=== PATIENT | male | born 1975 | race Caucasian/White ===

== ENCOUNTER 2022-07-21 11:17 | Emergency (ER) | payer BC, SELFPAY ==
[2022-07-21 11:25] VITALS: BP 145/96; PULSE 79; RESP 18; TEMP 37.1; O2SAT 97; BMI 17.8
--- NOTE | 2022-07-21 11:41 | CRLHL7_ITS ---
For Patients: As a result of the Cures Act, medical imaging exams and procedure reports are released immediately into your electronic medical record. You may view this report before your referring provider. If you have questions, please contact your health care provider. Indication: PAIN, EFFUSION Technique: Right knee 3 views Comparison: None Findings: Bones: Alignment is normal. No fractures or suspicious bone lesions. Incidental bone island in the distal femur. Joint spaces: Joint spaces are well maintained. No degenerative changes. No sign of joint effusion. Soft tissues: Unremarkable. Impression: No fracture. No effusion. Dictated by Shaq Anne MD @ 07/21/2022 12:06:44 PM (Electronically Signed)
--- NOTE | 2022-07-21 11:42 | ED_ITS ---
HPI - Extremity Injury (Lower) General Chief Complaint: Extremity Pain/Injury, Lower Stated Complaint: Right knee pain Time Seen by Provider: 07/21/22 11:17 History of Present Illness HPI Narrative: This 46-year-old male comes in with pain in his right knee that began yesterday. Yesterday he was chopping wood and doing lots of bending. He did not have any specific injury event but did feel that his knee buckled at 1 point. He does not have a prior injury to either knee. He has had some back pain in the past but has none at this time. He states that he had swelling in his knee last night and his ankle also swelled up. He did use some compression and today that swelling has dissipated. He has distinct pain when ambulating on his right leg but was able to ambulate in here without assistance. He reports pain is localized on the lateral aspect of the right knee joint. Related Data Previous Rx's Medication Instructions Recorded ketorolac 10 mg tablet 10 mg PO Q8H 5 days #15 tabs 07/21/22 Allergies Allergy/AdvReac Type Severity Reaction Status Date / Time acetaminophen [From Tylenol] AdvReac Mild Verified 07/21/22 11:30 Review of Systems Status of ROS: Reports: 10 or more systems reviewed and unremarkable except as noted in History and below Narrative: Constitutional: No fevers, no weight gain or loss. Eyes: No discharge. No vision changes. HENT: No congestion, no sore throat, no ear pain. Cardiovascular: No chest pain, no palpitations. Respiratory: No shortness of breath, no wheezes, no cough. Gastrointestinal: No abdominal pain, no vomiting, no diarrhea. Genitourinary: No dysuria, no hematuria. Musculoskeletal: Right knee pain as described above. Skin: No rashes, no pruritis. Neurological: No dizziness, weakness, sensory change, speech change. Endo/Heme/Allergies: No bruising or bleeding. No polydipsia. Pysch: no suicidality, no anxiety, no insomnia. All other systems reviewed and are negative. [facility] Medical History (Updated 07/21/22 @ 12:29 by Toro Solorzano MD) No significant past medical history Surgical History (Updated 07/21/22 @ 11:31 by Martha Lee RN) No significant past surgical history Social History Smoking Status: Current every day smoker How often do you have a drink containing alcohol: 4 or more times a week AUDIT-C Alcohol total score: 4 Non-prescribed substance use: denies use Exam Narrative: Exam Narrative: Constitutional: Well-developed, well-nourished, no acute distress. HEENT: Normocephalic, atraumatic. Neck: Normal range of motion. Nontender. Supple. Heart: Intact distal pulses. Lungs: No chest discomfort. No wheezes, rhonchi, or rales. Abdomen: Nontender. Back: Normal range of motion. Extremities: Normal range of motion. Pain is localized on the lateral aspect of the right knee joint. There is no effusion. All ligaments are assessed and there is no sign of ligament instability. Range of motion is intact. Skin: Intact. No rash. Warm. No erythema or pallor. Neurologic: No altered sensation. No weakness. Alert and oriented. Straight leg raise is negative. Psychiatric: No suicidality. No anxiety or depression. No insomnia. Nursing notes and vitals signs are reviewed. Const: Vital Signs, click to edit/add: Vital Signs - 24 hr 07/21/22 11:25 Temperature 98.7 F Pulse Rate [Pulse Oximeter] 79 Respiratory Rate 18 Blood Pressure [Ri ght Upper Arm] 145/96 H Pulse Oximetry 97 Oxygen Delivery Me thod Room Air Course Vital Signs Vital signs: Initial Vital Signs Temperature 98.7 F 07/21/22 11:25 Temperature Source Temporal Artery Scan 07/21/22 11:25 Pulse Rate 79 07/21/22 11:25 Respiratory Rate 18 07/21/22 11:25 Blood Pressure 145/96 H 07/21/22 11:25 Blood Pressure Mean 112 07/21/22 11:25 Blood Pressure Position Supine 07/21/22 11:25 Pulse Oximetry 97 07/21/22 11:25 Oxygen Delivery Method 07/21/22 11:25 Vital Signs Temperature 98.7 F 07/21/22 11:25 Pulse Rate 79 07/21/22 11:25 Respiratory Rate 18 07/21/22 11:25 Blood Pressure 145/96 H 07/21/22 11:25 Pulse Oximetry 97 07/21/22 11:25 Oxygen Delivery Method 07/21/22 11:25 Temperature 98.7 F 07/21/22 11:25 Pulse Rate 79 07/21/22 11:25 Respiratory Rate 18 07/21/22 11:25 Blood Pressure 145/96 H 07/21/22 11:25 Pulse Oximetry 97 07/21/22 11:25 Oxygen Delivery Method 07/21/22 11:25 MDM - Extremity Injury (Lower) MDM Narrative Medical decision making narrative: This patient comes in with pain in his right knee and states that he had an effusion last night that also causes ankle to swell. He use some compression and today has very minimal swelling. He continues to have some pain localized on the lateral aspect of his knee. He is able to ambulate. His exam is reassuring in that there is no ligament instability. I tested ACL, PCL, MCL, and LCL ligaments. All are intact and there was no discomfort when assessing these ligaments. He currently does not have any sign of effusion. X-ray images also returned with no acute findings. Most likely this patient has an overuse injury and would anticipate recovery over time. He does ambulate with a significant limp. He did receive a set of crutches and a prescription for Toradol. I advised him to follow-up with orthopedic clinic if not improving or if worsening symptoms happen. Imaging Data XR R knee: Radiologist's impression: No fracture. No effusion. Discharge Plan Discharge Clinical Impression: Acute knee pain Patient Disposition: Home, Self-Care Condition: Stable Additional Instructions: Use crutches as needed. Increase activity as tolerated. Follow up with MD or return if worsening. Prescriptions: New ketorolac 10 mg tablet 10 mg PO Q8H 5 Days Qty: 15 0RF Follow Up/Referrals: Matthew Howard MD [Referring] - Stand Alone Forms: [employer] Info Instructions
--- OUTSIDE RECORDS SUMMARY | 2022-07-21 11:51 | XMS_ITS | Encounter Summary ---
:1975 Author Organization Veteran Address [address] [place] [id number] Care Team Providers Name Role Phone No Ref-Primary, Physician Primary Care Provider [phone] Encounter Details Date Type Department Care Team Description 04/19/2019 Travel Social History Tobacco Use Types Packs/Day Years Used Date Never Assessed Sex Assigned at Date Recorded Not on file documented as of this encounter Plan of Treatment Not on filedocumented as of this encounter Visit Diagnoses Not on filedocumented in this encounter Care Teams Kiln Firer Relationship Specialty Start Date End Date No Ref-Primary, Physician PCP - General 04/19/19 documented as of this encounter
--- OUTSIDE RECORDS SUMMARY | 2022-07-21 11:51 | XMS_ITS | Clinical Summary ---
:1975 Author Organization [place] Address [address] [place] [address]. [place] [address] Care Team Providers Name Role Phone No Ref-Primary, Physician Primary Care Provider [phone] Allergies No known active allergies Immunizations Name Administration Dates Next Due TDAP Vaccine (Adacel) 04/19/2019 (Deferred: - Reports had re cently.) Social History Tobacco Use Types Packs/Day Years Used Date Never Assessed Sex Assigned at Date Recorded Not on file Last Filed Vital Signs Vital Sign Reading Time Taken Comments Blood Pressure 142/92 04/19/2019 1:02 AM CDT Pulse 72 04/19/2019 1:00 AM CDT Temperature 36.6 ??C (97.8 ??F) 04/19/2019 1:00 AM CDT Respiratory Rate 16 04/19/2019 1:00 AM CDT Oxygen Saturation 98% 04/19/2019 1:02 AM CDT Inhaled Oxygen Concentration - - Weight 70.3 kg (155 lb) 04/19/2019 1:00 AM CDT Height - - Body Mass Index - - Plan of Treatment Not on file Insurance Payer Benefit Plan / Subscriber ID Effective Phone Address T ype Group Dates [facility] [id number] Effective for [phone] [address] HMO [place]ARE [place] all dates [address] [place] [address] BLUE PLUS BLUE PLUS [id number] 2019-Pres [phone] [address] HMO ADVANTAGE [place] ent [phone] [place] [address] Tenzin [facility]ner [facility] 1975 [phone] [address] [place] [address] Care Teams Server Systems Administrator Relationship Specialty Start Date End Date No Ref-Primary, Physician PCP - General 04/19/19
--- OUTSIDE RECORDS SUMMARY | 2022-07-21 11:51 | XMS_ITS | Encounter Summary ---
:1975 Author Organization [place] Address [address] [place] [address]. [place] [address] Care Team Providers Name Role Phone Emmanuel Maravilla MD Primary Care Provider [phone] Encounter Details Date Type Department Care Team Description 12/29/2002 Orders Only [facility] Emmanuel Dominguez FOOT 3VW REPT Clinic [place] Hum[place] MD (Primary Dx) [facility] [address] [place] [id number] [phone] Social History Tobacco Use Types Packs/Day Years Used Date Never Assessed Sex Assigned at Date Recorded Not on file documented as of this encounter Plan of Treatment Not on filedocumented as of this encounter Procedures Procedure Name Priority Date/Time Associated Diagnosis Comme nts X-RAY FOOT COMPLETE Routine 12/29/2002 FOOT 3VW REPT Resu lts for this >=3 VIEWS procedure are i n the results section . documented in this encounter Results X-RAY FOOT 3+ VW (12/29/2002) Anatomical Region Laterality Modality Other Impressions 12/29/2002 THREE VIEWS OF THE RIGHT FOOT HISTORY: Injury. FINDINGS: Comminuted fracture of the dis robert end of the proximal phalanx of the right great toe. Fracture fragments well aligned. Ordering Provider: ??SONIA RAPP Principal Result Clinical Psychology Teacher: ??KRAIG ORNELAS Delivery Department Supervisor: ??Elda Wu Electronically filed by Aden Suazo ( [facility]) ??12/31/2002 ??9:09 AM Emmanuel Maravilla MD GENERAL IMAGING documented in this encounter Visit Diagnoses Diagnosis FOOT 3VW REPT - Primary documented in this encounter Care Teams Lumber Tying Machine Operator Relationship Specialty Start Date End Date Emmanuel Maravilla MD PCP - General 12/07/01 04/18/19 [id number] [place] [id number] documented as of this encounter
--- OUTSIDE RECORDS SUMMARY | 2022-07-21 11:51 | XMS_ITS | Encounter Summary ---
:1975 Author Organization [place] Address [address] [place] [address]. [place] [address] Care Team Providers Name Role Phone Emmanuel Maravilla MD Primary Care Provider [phone] Encounter Details Date Type Department Care Team Description 08/20/2012 Office Visit [facility] Zenia Bolanos LP Adjustment disorder Services [facility] FILLER MIXER KNOB with mixed anxiety and [facility] depressed mood FILLER MIXER KNO[place], [place] (Primary Dx) [place] [id number] Social History Tobacco Use Types Packs/Day Years Used Date Never Assessed Sex Assigned at Date Recorded Not on file documented as of this encounter Progress Notes Zenia Bolanos LP - 08/20/2012 5:17 PM CDT Images from the original note were not included. Adult Intake Structured Interview CLIENT'S NAME: Tenzin Garner : 1975 ACCT. NUMBER: [id number] DATE OF SERVICE: 08/20/12 Identifying Information: Client is a 36 year old, , male. Client was referred for counseling by self. Client is currently underemployed. Client attended the session alone. Client's Statement of Presenting Concern: Client reports the reason for seeking therapy at this time as to assess mental health. Client statedthat his symptoms have resulted in the following functional impairments: health maintenance and financial. History of Presenting Concern: Client reports that these problem(s) began in the last few years DWI 3 years ago) and increased recently . Client has not attempted to resolve these concerns in the past. Client reports that other professional(s) are not involved in providing support / services. Social History: Client reported he grew up in [place], [place]. They were the second born of 3 children. This is an intact family and parents remain . Client reported that his childhood was happy. Client described his current relationships with family of origin as not as good as he would Like with sons, good with daughter. Client reported a history of 4 committed relationships and 1 marriage. Client has been for about 3 years. Client reported having 3 children. Client identified some stable and meaningful socialconnections. Client reported that he has been involved with the legal system: DWI. Client's highest education level was grade 10 . Client did identify the following learning problems: attention, concentration, hearing, reading, speech and writing. There are no ethnic, cultural or mu-ism factors that may be relevant for therapy. Client identified his preferred language to be Tristanian. Client reported he does not need the assistance of an medical sales specialist or other support involved in therapy. Modifications will not be used to assist communication in therapy. Client did not serve in the . Client reports family history is not on file. Mental Health History: Client reported no family history of mental health issues. Client has not received mental health services in the past. Hospitalizations: None. Client is not currently receiving any mental health services. Chemical Health History: Client reported no family history of chemical health issues. Client has [facility] . Client is not currently receiving any chemical dependency treatment. Client reported the following problems as a result of drinking and drug use: DUI, financial problems and legal issues. Client Reports: Client consumes 0 ALCOHOL. Client consumes TOBACCO 10 times a day. About 1/2 pack a day. Client denies using marijuana. Client consumes CAFFEINE 2 times a week. Client denies using street drugs. Client denies the non-medical use of prescription or over the counter drugs. CAGE: None of the patient's responses to the CAGE screening were Negative . Based on the negative Cage-Aid score and clinical interview there are not indications of drug or alcohol abuse. Discussed the general effects of drugs and alcohol on health and well-being. Significant Losses / Trauma / Abuse / Neglect Issues: Divorce, missing his kids, Kids were taken out of the state without his awareness, of friends/family members. Issues of possible neglect : none Medical Issues: Client has had a physical exam to rule out medical causes for current symptoms. Date of last physical exam was within the last year. The client does not have a Primary Care Provider and was encouraged to establish care with a PCP.. The client reports not having a psychiatrist. Client reports the following current medical concerns: asthma, chronic pain. The client reports the presence of chronic or episodic pain in the form of back , neck shoulder and foor. The pain level is severe and has a frequency of daily. Attends p.t. Twice a week. There are not significant nutritional concerns. Client reports current meds as: Gabapentin Is re-evaluating it. Flexerall 2 times a week. Medication Adherence: Client reports taking prescribed medications as prescribed. Client was provided recommendation to follow-up with prescribing physician. Mental Status Assessment: Appearance: Appropriate Eye Contact: Good Psychomotor Behavior: Normal Attitude: Cooperative Orientation: All Speech Rate / Production: Normal Volume: Normal Mood: Normal Affect: Appropriate Thought Content: Clear Thought Form: Coherent Logical Insight: Good Review of Symptoms: Depression: PHQ-9 score= 10 Disruption of mood, sleep ( is related to pain), energy, & concentration Anabella: No symptoms Psychosis: No symptoms Anxiety: Osmani 7 score = 1 Irritable, edgy, anxious Panic: PANIC: No symptoms Post Traumatic Stress Disorder: No symptoms Obsessive Compulsive Disorder: No symptoms Eating Disorder: No symptoms Oppositional Defiant Disorder: No symptoms ADD / ADHD: No symptoms Conduct Disorder: No symptoms Safety Issues and Plan for Safety and Risk Management: Client denies a history of suicidal ideation, suicide attempts, self-injurious behavior, homicidal ideation, homicidal behavior and other safety concerns Client denies current fears or concerns for personal safety. Client denies current or recent suicidal ideation or behaviors. Client denies current or recent homicidal ideation or behaviors. Client denies current or recent self injurious behavior or ideation. Client denies other safety concerns. Client reports there are no firearms in the house. A safety and risk management plan has not been developed at this time, however client was given the after-hours number should there be a change in any of these risk factors. Patient's Strengths and Limitations: Client identified the following strengths or resources that will help her succeed in counseling: commitment to health and well being, intelligence and sense of humor. Client identified the following supports: friends. Things that may interfere with the clients success in counseling include:financial hardship. Diagnostic Criteria: Adjustment Disorder with Mixed Anxiety and Depressed Mood: The predominant manifestation is a combination of depression and anxiety Functional Status: Client's symptoms have caused and are causing reduced functional status in the following areas: financial, unemployment DSM-IV Diagnoses: (Sustained by DSM-IV Criteria Listed Above) AXIS I: 309.28 AXIS II: none AXIS III: Chronic pain, taking Adrenagen for an adrenal AXIS IV: unemployed AXIS V: Current GAF estimated at: 55 Highest GAF past year estimated at: 68 Attendance Agreement: Client has signed Attendance Agreement: Yes Preliminary Treatment Plan: The client reports no currently identified mu-ism, ethnic or cultural issues relevant to therapy. Vest Presser services are not indicated. Modifications to assist communication are not indicated. The concerns identified by the client will be addressed in therapy. Initial Treatment will focus on: Adjusting to Depressed Mood - Anxiety - . As a preliminary treatment goal, client will experience a reduction in depressed mood, will develop more effective coping skills to manage depressive symptoms, will develop healthy cognitive patterns and beliefs and will increase ability to function adaptively and will experience a reduction in anxiety, will develop more effective coping skills to manage anxiety symptoms, will develop healthy cognitive patterns and beliefs and will increase ability to function adaptively. The focus of initial interventions will be to alleviate anxiety, increase coping skills, teach CBT skills, teach emotional regulation and teach relaxation strategies. Collaboration with PCP as needed. Referral to another professional/service is not indicated at this time. A Release of Information is not needed at this time. Report to child / adult protection services was NA. Client will have access to their [facility] medical record. Zenia Bolanos LP, documented in this encounter Plan of Treatment Not on filedocumented as of this encounter Visit Diagnoses Diagnosis Adjustment disorder with mixed anxiety a nd depressed mood - Primary documented in this encounter Care Teams Quality Assurance Coordinator Relationship Specialty Start Date End Date Emmanuel Maravilla MD PCP - General 12/07/01 04/18/19 [address] [place] [id number] documented as of this encounter
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
--- OUTSIDE RECORDS SUMMARY | 2022-07-21 11:51 | XMS_ITS | Encounter Summary ---
:1975 Author Organization [place] Address [address] [place] [address] Care Team Providers Name Role Phone Emmanuel Maravilla MD Primary Care Provider [phone] Encounter Details Date Type Department Care Team Description 12/03/2012 [facility] Zenia Bolanos LP Documentation Services [id number] [place] [address] [id number] Social History Tobacco Use Types Packs/Day Years Used Date Never Assessed Sex Assigned at Date Recorded Not on file documented as of this encounter Progress Notes Zenia Bolanos LP - 12/03/2012 3:33 PM CST Images from the original note were not included. Discharge Summary Single Session Client Name: Tenzin Garner Date: 1975 Intake / Discharge Date: 08-20-1212-03-12 DSM-IV Diagnoses: (Sustained by DSM-IV Criteria Listed Above) AXIS I: 309.28 AXIS II: none AXIS III: Chronic pain, taking Adrenagen for an adrenal AXIS IV: unemployed AXIS V: Current GAF estimated at: 55 Highest GAF past year estimated at: 68 Presenting Concern: Financial And family stressors Reason for Discharge: Client did not return Disposition at Time of Last Encounter: Comments: unemployed Risk Management: Client denies a history of suicidal ideation, suicide attempts, self-injurious behavior, homicidal ideation, homicidal behavior and and other safety concerns A safety and risk management plan has not been developed at this time, however client was given the after-hours number should there be a change in any of these risk factors. Referred To: none Zenia Bolanos LP 12/03/2012 VACUUM TESTER documented in this encounter Plan of Treatment Not on filedocumented as of this encounter Visit Diagnoses Not on filedocumented in this encounter Care Teams Inspector Filter Tip Relationship Specialty Start Date End Date Emmanuel Maravilla MD PCP - General 12/07/01 04/18/19 [address] [place] [address] documented as of this encounter
--- OUTSIDE RECORDS SUMMARY | 2022-07-21 11:52 | XMS_ITS | Clinical Summary ---
:1975 External Reference #:CL #[id number] Author Organization [facility] [place] [address] Care Team Providers Name Role Phone [facility] Primary Care Provider Unavailable Allergies Active Allergy Reactions Severity Noted Date Comments Acetaminophen Stomach Upset 12/04/2014 Medications Medication Sig Dispensed Refills Start Date End Date Status ranitidine (ZANTAC) 150 One pill 1-2 180 tablet 2 10/23/2016 Active mg tabletIndications: times a day as Epigastric pain needed for stomach symptoms. cyclobenzaprine One po q hs 30 tablet 3 04/30/2017 A ctive (FLEXERIL) 10 mg tabletIndications: Worsening headaches omeprazole (PRILOSEC) 20 Take 1 capsule 30 capsule 4 7 Active mg Delayed-Release by mouth once capsuleIndications: daily before a Chronic cough meal. albuterol HFA 90 Inhale 2 Puffs 1 Inhaler 0 04/30/2017 Active mcg/actuation by mouth 4 inhalerIndications: times daily if Chronic cough needed. Active Problems Problem Noted Date Presbyopia 06/26/2019 Myopia of both eyes 11/14/2016 Alcohol-induced acute pancreatitis 05/09/2016 Elevated LFTs 03/28/2015 Dyslipidemia 03/28/2015 Tobacco abuse 03/27/2015 Marijuana use 03/27/2015 Mid back pain, chronic 03/27/2015 Alcohol use 03/27/2015 HTN (hypertension) 03/25/2015 Low back pain 11/13/2014 ASTHMA NOS 10/03/1999 Resolved Problems Problem Noted Date Resolved Date HTN (hypertension) 03/27/2015 03/27/2015 Immunizations Name Administration Dates Next Due Td, Preservative Free (age >= 7 Years) 07/23/2015 Tdap 11/09/2009 Family History Medical History Relation Name Comments Genetic Other FATHER LAZY EYE Relation Name Status Comments Other Social History Tobacco Use Types Packs/Day Years Used Date Current Every Day Smoker Cigarettes 0.5 Smokeless Tobacco: Never Used Tobacco Cessation: Ready to Quit: No; Co unseling Given: Yes Comments: 6 cigarettes per day, is worki ng on quitting Alcohol Use Standard Drinks/Week Comments Yes 0 (1 standard drink = 0.6 oz pure alcoho l) 6 beers a night Alcohol Habits Answer Date Recorded How often do you have a drink containing alcohol? Not asked How many drinks containing alcohol do you have on a Not aske d typical day when you are drinking? How often do you have six or more drinks on one Not asked occasion? 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 Oxygen Saturation 97% 04/30/2017 9:38 AM CDT Inhaled Oxygen Concentration - - Weight 64.4 kg (142 lb) 05/02/2019 11:34 AM CDT Height 181.5 cm (5' 11.46) 04/09/2017 8:38 AM CDT Body Mass Index 19.55 04/09/2017 8:38 AM CDT Plan of Treatment Health Maintenance Due Date Last Done Comments COVID-19 vaccine series (#1) 02/22/1976 Hepatitis C screening for age 1108/24/1993 18-79 Depression screening for age 12+ 12/04/2017 12/04/2016, , 04/11/2016 BMI (ht and wt on same day) for 04/09/2018 04/09/2017, 12/20, age 18+ 11/07/2016, Additional history exists Colonoscopy through age 75 2020 Lipids for age 45-75 2020 03/25/2015 Influenza for age 9-49 06/22/2022 Tetanus booster 07/23/2025 07/23/2015, 11/09/2009 Tdap Completed 11/09/2009 Results Not on filefrom Last 3 Months Insurance Payer Benefit Plan / Subscriber ID Effective Dates Phone Addre ss Type Group WC WORKERS WC JAK TPA xx [id number] 2009-Prese 2000 [employer] [phone] [place] [address] BLUE CROSS [place] BLUE ADVANTAGE [id number] 2019-Presen [address] [address] [facility] [place] [address] Tenzin Garner Workers Comp Self 1975 [phone] [id number]) [place] [address] Tenzin Garner Workers Comp Self 1975 [phone] [id number] (Home) [place] [address] Care Teams Sander Wooden Pencils Relationship Specialty Start Date End Date [place] PCP - General 04/25/19
--- OUTSIDE RECORDS SUMMARY | 2022-07-21 11:52 | XMS_ITS | Encounter Summary ---
:1975 Author Organization [place] Address [facility] [place] [address] Care Team Providers Name Role Phone Emmanuel Maravilla MD Primary Care Provider [phone] No Ref-Primary, Physician Primary Care Provider [phone] Encounter Details Date Type Department Care Team Description 12/28/2002 [facility] Emmanuel Maravilla [place] (Primary Dx) Clinic [place] MD [facility] [address] [place] [address] [place] [id number] [place] [address] (Wo rk) [id number] [phone] Social History Tobacco Use Types Packs/Day Years Used Date Never Assessed Sex Assigned at Date Recorded Not on file documented as of this encounter Progress Notes 12/25/2002 11:59 PM WET SILK HANGER 00:00 Emergency Department Encounter-NERI PATEL () [Entered: 00:00 Regulatory Compliance Director ([facility])] : 1975 CHIEF COMPLAINT: Foot pain. HISTORY OF PRESENT ILLNES S: This 27-year-old male presents ambulatory to the emergency department complaining that he stubbed his right great toe at home in his bare feet earlier this evening. It has gotten worse. He denies any previous injury that he can recall. He denies any other injuries to this extremity. He complain s that he cannot stand on his toe. PAST MEDICAL HISTORY: Otherwise negative. MEDICATIONS: None. ALLERGIES: NO KNOWN DRUG ALLERGIES. SOCIAL HISTORY: He smokes one-half pack per day. Occasional a lcohol. He works for [employer] and lives in [place]. He is single. OBJECTIVE: Temper ature is 97.1, heart rate 101, respirations 16, blood pressure 124/79. GENERAL: He is alert and jojo ented times 3. He looks older then his stated age of 27. MUSCULOSKELETAL: RIGHT GREAT TOE is marke dly swollen. It is tender to touch to the proximal phalanx. The FOOT is not erythematous, not swoll en, no deformity, nontender. Active range of motion of the ANKLE, KNEE, and HIP. EMERGENCY ROOM COU RSE: X-rays were obtained and showed a comminuted fracture of the proximal phalanx involving about 5 0% of the joint, nondisplaced. IMPRESSION: Comminuted right proximal phalanx, great toe fracture. PLAN: It was [place]-taped to the second toe. Stiff soled walking shoe placed. The splint was examin ed by this physician for appropriate fit. He will go home on ibuprofen, 600 mg p.o. q. 8 hours with f ood. Vicodin, 1 to 2 p.o. q. 4 to 6 hours p.r.n. pain. Elevate the foot and ice for 72 hours. Wear stiff soled walking shoe. See orthopedics later on today, December 29, 2002, and we gave him a card. E M120 NERI DYER MD MT: Document: [id number] [place], [place] Name: TENZIN GARNER EMERGENCY ROOM ENCOUNTER Page 2 of 2 LCN: DAYAMI DSC: 12/28/2002 [place], [place] Name: MR#: : [facility] Date: TENZIN GARNER -43 1975 12/28/2002 Doctor: NERI DYER MD EMERGEN CY ROOM ENCOUNTER Page 1 of 1 Electronically filed by Aden Suazo ([facility]) 01/05/2003 9:44 AM documented in this encounter Plan of Treatment Not on filedocumented as of this encounter Visit Diagnoses Diagnosis ER ENC - Primary documented in this encounter Care Teams Philosophy Instructor Relationship Specialty Start Date End Date Emmanuel Maravilla MD PCP - General 12/07/01 04/18/19 [address] [place] [address] No Ref-Primary, Physician PCP - General 04/19/19 documented as of this encounter
--- NOTE | 2022-07-21 12:55 | ED.NURSE ---
pt fitted for crutches, pt ambulated out of ED on crutches.
== END 2022-07-21 12:52 | disposition home or self-care (01) ==
PROVIDERS: Emergency Provider Emergency Medicine Emergency Medical Services
DX: M25.561 Pain in right knee (principal)
CPT/HCPCS: 73562; 99283; 99284

== ENCOUNTER 2023-01-17 12:50 | Outpatient (CLI) | payer BC, SELFPAY ==
--- NOTE | 2023-01-17 13:00 | MR_ITS ---
[facility] [address] [facility] [address] Phone:?[phone] Fax:?[phone] Referring Physician Information: Rehana Fortune M.D. [address] [facility] [address] Phone:?[phone] Fax:?[phone] Patient:Georgie Garner D.O.B:?1975 Sex:?Male Phone:?[phone] [facility] MRN:?[id number] Exam Date:?01/17/2023 ? EXAM: MRI OF THE RIGHT SHOULDER CLINICAL INFORMATION: The patient is a 47-year-old with right shoulder pain. PRIOR SURGERY: None reported. COMPARISON STUDIES: Comparison is made to the report of the prior MRI of the right shoulder dated 11/15/1999. TECHNICAL INFORMATION: Using a 1.5T MR scanner and a localizing shoulder surface coil: 3.0 mm?coronal obliques: PD, T2, STIR 3.0 mm?sagittal obliques: PD, T2 3.0 mm?axials: PD, T2 FINDINGS: Articular/Extraarticular collections: Effusion: Mild. Subacromial/subdeltoid: Mild to moderate fluid is seen within the subacromial/subdeltoid bursa, in keeping with changes of bursitis. Subcoracoid: No evidence for bursitis. Osseous structures: Proximal humerus: No evidence for bony injury to the proximal humerus can be seen. There is no evidence for greater tuberosity fracture. No Hill-Sachs or reverse Hill-Sachs deformity is seen. Glenoid: No acute bony abnormality of the glenoid fossa or glenoid neck can be seen. Acromioclavicular joint: Mild changes of acromioclavicular joint arthrosis are present and can be seen on coronal series 4 image 12 and on sagittal series 7 image 11. Coracoacromial arch: Acromion morphology: Type I. No evidence for os acromiale. Acromiohumeral space: Moderately narrowed. Coracohumeral space: Within normal limits. Rotator cuff and deltoid: Supraspinatus: The supraspinatus tendon is abnormal in appearance. Mild to moderate changes of supraspinatus tendinosis can be seen with a superimposed focus of full-thickness or near full-thickness tearing of the anterior and distal tendon fibers seen on sagittal series 8 image 4 and on coronal series 6 image 10. The area of tearing measures approximately 9 mm in mediolateral dimension and 9 mm in anteroposterior dimension. No atrophic changes of the supraspinatus muscle belly are identified. Infraspinatus: No evidence for tendinosis, tearing, or associated muscle belly atrophy. Teres minor: No evidence for tendinosis, tearing, or associated muscle belly atrophy. Subscapularis: Mild to moderate subscapularis tendinosis can be seen. There is no evidence for full or partial-thickness tearing. No atrophic changes of the subscapularis muscle belly are noted. Deltoid: No evidence for strain or tearing. Biceps tendon: The intra-articular and biceps sulcus portions of the biceps tendon are normal. There is no evidence for rupture, dislocation, or subluxation. Glenohumeral joint and labrum: Articular Cartilage: Chondromalacia and chondral loss can be seen along the articular surfaces of the glenohumeral articulation. No definite osteoarthritic changes are identified. Labrum: Degeneration and blunting of the glenoid labrum can be seen without definite areas of more well-defined tearing. No paralabral ganglion cyst formation is seen. Capsular Soft Tissues: No definite capsular abnormalities of the glenohumeral joint are seen. No evidence for capsular tearing is present and there are no MR signs of adhesive capsulitis. CONCLUSION: 1. Mild to moderate supraspinatus and subscapularis tendinosis with a superimposed focus of full-thickness or near full-thickness tearing of the anterior and distal supraspinatus tendon fibers as described above. 2. Mild glenohumeral joint effusion and mild to moderate subacromial/subdeltoid bursitis. 3. Mild acromioclavicular joint arthrosis with moderate narrowing of the acromiohumeral space. 4. No definite injuries to the long head of the biceps can be seen. 5. Chondromalacia and chondral thinning along the articular surfaces of the glenohumeral articulation. 6. Degeneration and blunting of the glenoid labrum. AEC Electronically signed on 01/17/2023 3:20:00 PM by Shaheed Pinedo M.D.
== END 2023-01-17 12:51 | disposition home or self-care (01) ==
LOC: MRI 12:53
PROVIDERS: PCP Family Medicine; Visit Provider Family Medicine
DX: M25.511 Pain in right shoulder (principal); M25.611 Stiffness of right shoulder, not elsewhere classified; M75.101 Unspecified rotator cuff tear or rupture of right shoulder, not specified as traumatic; M25.411 Effusion, right shoulder; M19.011 Primary osteoarthritis, right shoulder; M94.211 Chondromalacia, right shoulder
CPT/HCPCS: 73221

== ENCOUNTER 2023-02-14 12:47 | Outpatient (CLI) | payer BC, SELFPAY ==
--- NOTE | 2023-02-14 13:00 | CRLHL7_ITS ---
For Patients: As a result of the Century Cures Act, medical imaging exams and procedure reports are released immediately into your electronic medical record. You may view this report before your referring provider. If you have questions, please contact your health care provider. INDICATION: Low back pain. TECHNIQUE: Noncontrast sagittal and axial T1, T2, and sagittal STIR sequences are provided. No comparisons. FINDINGS: The overall stature, alignment and intrinsic marrow signal of the lumbar spine is within normal limits. Conus is normal. L1-2: Unremarkable. L2-3: Mild right intra foraminal/lateral disc herniation results in mild contact of the exiting right L2 nerve root laterally. No central canal or left foraminal narrowing. L3-4: Mild right intra foraminal disc bulge extending laterally results in minimal right foraminal narrowing with no central canal or left foraminal narrowing. L4-5: Mild bilateral facet arthropathy with mild broad-based posterior disc bulge results in minimal bilateral foraminal narrowing with no central canal narrowing. L5-S1: Minor posterior central disc herniation that is eccentric to the right resulting in mild contact of the traversing right S1 nerve root. No central canal or foraminal narrowing. IMPRESSION: 1. Right intra foraminal/lateral disc herniation at L2-3 resulting in mild contact of the exiting right L2 nerve root laterally. 2. Minimal right L3-4 foraminal narrowing. 3. Right posterior paracentral disc herniation L5-S1 resulting in mild contact of the traversing right S1 nerve root. 4. Milder degenerative changes within the remainder of the lumbar spine as outlined above. Dictated by Michael Argueta MD @ 02/14/2023 6:49:40 PM Dictated by: Michael Argueta MD @ 02/14/2023 18:49:49 (Electronically Signed)
== END 2023-02-14 12:48 | disposition home or self-care (01) ==
LOC: MRI 12:47
PROVIDERS: PCP Family Medicine; Visit Provider Family Medicine
DX: M54.50 Low back pain, unspecified (principal); M51.26 Other intervertebral disc displacement, lumbar region; M51.36 Other intervertebral disc degeneration, lumbar region; M54.30 Sciatica, unspecified side
CPT/HCPCS: 72148

== ENCOUNTER 2023-04-19 13:22 | Outpatient (CLI) | payer BC, SELFPAY ==
--- NOTE | 2023-04-19 13:45 | CRLHL7_ITS ---
For Patients: As a result of the Century Cures Act, medical imaging exams and procedure reports are released immediately into your electronic medical record. You may view this report before your referring provider. If you have questions, please contact your health care provider. HISTORY: Fall. TECHNIQUE: Noncontrast MRI of the right hip. COMPARISON: Radiographs 04/05/2023. FINDINGS: Osseous structures: No acute fracture. No pathologic marrow replacement process. No avascular necrosis. - Right hip: No right hip joint effusion. The articular surfaces are smooth without focal articular cartilage defect. No intra-articular joint body. There is chondral labral junction degeneration present superior laterally. - Left hip: No left hip joint effusion. Chondral labral junction degeneration is present superolaterally. The articular surfaces appear smooth without focal articular cartilage defect. - Musculotendinous structures and bursae: Distal gluteal tendons are intact. There is no trochanteric bursal fluid collection. Common hamstring tendons are intact. Distal iliopsoas tendons are intact. - Other findings: The pubic symphysis is intact. There are mild sacroiliac joint degenerative changes. - Intrapelvic soft tissues: No inguinal hernia. No deep pelvic fluid collection. Mildly heterogeneous appearance of the prostate. IMPRESSION: 1. No fracture. 2. No right hip joint effusion or focal articular cartilage defect. Mild chondral labral junction degeneration is present superolaterally. 3. No tendon tearing nor bursitis. Dictated by Kalyan Menendez MD @ 04/21/2023 5:53:53 PM (Electronically Signed)
== END 2023-04-19 13:23 | disposition home or self-care (01) ==
LOC: MRI 13:22
PROVIDERS: PCP Family Medicine; Visit Provider Family Medicine
DX: R26.89 Other abnormalities of gait and mobility (principal); W19.XXXA Unspecified fall, initial encounter
CPT/HCPCS: 73721

== ENCOUNTER 2023-04-25 14:30 | Outpatient (RCR) | payer BC, SELFPAY ==
--- NOTE | 2023-03-26 16:12 | PT.OPE ---
PT [place] Outpatient Eval PT [facility] Outpatient Eval Start: 03/26/23 14:34 Freq: Status: Active Protocol: Document 03/26/23 14:34 LSL (Rec: 03/26/23 15:20 LSL [id number]) E-signed By Jennifer [place] PT Physical Therapy Outpatient Evaluation Insurance Information Insurance Name Medicaid,Blue Cross/Blue Shield Medical Diagnosis lumbar disc HNP, radiculopathy , lumbar DDD, sciatica Referring MD [place] Subjective Subjective Pt. reports he's been having back pain over the past 2 months while he was trying to protect his R shoulder lifting a case of water and he fell and has 3 bulged discs. He also reports his R knee has given out a couple times causing him to fall and land on his knees. 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 Pt. reports he has symptoms down into his R groin and femur that sticks around a long time if he moves wrong. Use lots of ice and lots of hot packs. I take Flexaril and something else I quit taking because it messed my head up way to bad, ibuprofen and medical marijuana. Forward bending, reaching too far in front increase pain. Trying to do some of the stretches they gave me a long time ago when I hurt my shoulder but I can't do PPU - it hurts too badly. Job requires a lot of lifting, standing, carrying, and bending. They gave me prednisone on Sunday when I went to the hospital. Pt. reports he is half a pack smoker a day. 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 Precautions Weight Bearing Status Full Weight Bearing Therapy Limitations/Systems Review Not Limited Objective Range of Motion AROM - lumbar flexion 20% with pain and difficulty returning to neutral, extension 10% with pain, LLF 75% with pinch R, RLF 25% with sharp pain, L rotation WNL with R knee tingling, R rotation WNL Strength LE - R quad 4+/5, L 5/5, B HS 5/5, R hip flexion 5/5, L 3+/5 with pain, B adduction 3+/5, B abduction 4/5, B extension 4 +/5 TRUNK - lower abdominals 1+/5, upper abdominals deferred, extensors 2/5 with pain R L-S Palpation B QL R>L, L glut med > R glut med, R lumbar paraspinals about L-S junction most tender , R piriformis not tight but pressure felt goo, B HS below IT to mid thigh tight and tender Balance & Gait R SLB much less stable than L with knee flexion Posture trunk flexion especially in mid thoracic spine with scoliosis convex L thoracic Sensation/Reflexes Reflexes - L patellar 1/3, R patellar and B achilles absent SLR - R SLR positive with pain in L-S junction, L negative Other/Pertinent Objective JOINT PLAY - L4 L5 S1 PAs all tender, UPA non tender Assessment Assessment/Impression Pt. is a 47 y/o male who presents with significant LBP and radicular type pain that is causing his R knee to give out. He is a smoker and very thin with a moderate scoliosis and significant loss of lumbar lordosis with forward head and tight protracted shoulders. 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 He will benefit from PT to include pt. education, therex, NM re-ed, with traction and/ or modalities prn. Primary Functional Limitations walking, standing, reaching, lifting, bending, climbing, carrying Plan of Care Rehabilitation Potential Good Physical Therapy Goals SHORT TERM GOALS: (2-3 weeks) 1. Pt. able to complete transitional movements with pain less than 3/10 to turn over in bed and get out of a chair. 2. Pt. able to lift 25 pound items with improved mechanics to decrease pain to less than 3/10. 3. Able to assess upper abdominal strength and increase extensor strength to 3/5 or more. RETIREMENT GOALS: (4+ weeks) 1. Pt. able to walk without R knee giving out. 2. Pt. able to stand for 4 hours with pain less than 3/10 . 3. Pt. able to lift up to 50 pounds with pain less than 3/ 10. Coordination/Communication With Referral Source Treatment Plan/Direct Interventions Electrical Stimulation,Manual Therapy,Neuromuscular Re-ed, Self-Care/Home Management, Therapeutic Exercises,Traction (Mechanical) Frequency/Duration 2x/week 6 weeks Patient Will Be Discharged From Therapy Completion of LTG(s),Skills Plateau,Independent w/HEP, Independently Progressing Evaluation Billing Untimed Code Treatment Minutes 40 Complexity Moderate Certification Information Initial Certification Date 03/26/23 Ending Certification Date 06/22/23 Provider Signature Shows Agreement With POC & Medical Necessity Physician Signature & Date Requested Please Sign/Date Here Physician Comment/Change : Physician NPI Number #
== END 2023-06-05 14:26 | disposition home or self-care (01) ==
PROVIDERS: PCP Family Medicine; Visit Provider Family Medicine
DX: M51.26 Other intervertebral disc displacement, lumbar region (principal); M51.36 Other intervertebral disc degeneration, lumbar region; M54.10 Radiculopathy, site unspecified; Z51.89 Encounter for other specified aftercare
CPT/HCPCS: 97012; 97032; 97110; 97140; 97162

== ENCOUNTER 2023-05-24 14:06 | Outpatient (CLI) | payer BC, SELFPAY ==
--- NOTE | 2023-05-24 14:30 | CRLHL7_ITS ---
For Patients: As a result of the Century Cures Act, medical imaging exams and procedure reports are released immediately into your electronic medical record. You may view this report before your referring provider. If you have questions, please contact your health care provider. INDICATION: Chronic low back pain. Lumbar radiculopathy. TECHNIQUE: Noncontrast MRI of the lumbar spine is performed in the usual fashion. COMPARISON: From February 14, 2023. FINDINGS: The overall stature, alignment and intrinsic marrow signal lumbar spine is within normal limits. Conus is within normal limits. L1-2: Unremarkable. L2-3: Stable mild right intra foraminal/lateral disk protrusion contacts the exiting right L2 nerve root. No central canal or left foraminal narrowing. L3-4: Stable mild right intra foraminal disk bulge results in minimal right foraminal narrowing with mild contact of the exiting right L3 nerve root. No central canal or left foraminal narrowing. L4-5: Mild broad-based posterior disc bulge, endplate osteophyte and facet arthropathy results in stable minimal bilateral foraminal with no central canal narrowing. L5-S1: Stable right posterior paracentral disc protrusion contacting the traversing right S1 nerve root. No central canal or foraminal narrowing. IMPRESSION: 1. Stable right intra foraminal/lateral disc protrusion at L2-3 contacting the exiting right L2 nerve root laterally. 2. Stable minimal right L3-4 foraminal narrowing with mild contact of the exiting right L3 nerve root. 3. Stable right posterior paracentral disc protrusion at L5-S1 contacts the traversing right S1 nerve root. 4. Stable milder degenerative changes within the remainder of the lumbar spine as outlined above. Dictated by Michael Argueta MD @ 05/26/2023 10:02:37 AM (Electronically Signed)
== END 2023-05-24 14:07 | disposition home or self-care (01) ==
LOC: MRI 14:08
PROVIDERS: PCP Family Medicine; Visit Provider Family Medicine
DX: M54.10 Radiculopathy, site unspecified (principal); M54.50 Low back pain, unspecified; M51.26 Other intervertebral disc displacement, lumbar region; M51.36 Other intervertebral disc degeneration, lumbar region
CPT/HCPCS: 72148

== ENCOUNTER 2023-06-26 10:37 | Outpatient (CLI) | payer BC, SELFPAY | END 2023-06-26 10:38 | disposition home or self-care (01) | LOC: INJ CL 10:38 | PROVIDERS: PCP Family Medicine; Visit Provider Family Medicine | DX: M54.16 Radiculopathy, lumbar region (principal); M51.26 Other intervertebral disc displacement, lumbar region | CPT/HCPCS: 64483; J1100; Q9966 ==

== ENCOUNTER 2024-07-15 10:09 | Outpatient (CLI) | payer BC, SELFPAY ==
--- OUTSIDE RECORDS SUMMARY | 2024-07-15 10:20 | XMS_ITS | Clinical Summary ---
Author Organization [place] Address [address] [place] [address]. [place] [address] Care Team Providers Care Silver Designer Name Role Phone No Ref-Primary, Physician Primary Care Provider Allergies No known active allergies Immunizations Name Administration Dates Next Due TDAP Vaccine (Adacel) 04/19/2019(Deferred: - Rep orts had recently.) Social History Tobacco Use Types Packs/Day Years Used Date Smoking Tobacco: Never Assessed Sex and Gender Information Value Date Recorded Sex Assigned at Not on file Gender Identity Not on file Sexual Orientation Not on file Last Filed Vital Signs Vital Sign Reading Time Taken Comments Blood Pressure 142/92 04/19/2019 1:02 AM CDT Pulse 72 04/19/2019 1:00 AM CDT Temperature 36.6 ??C (97.8 ??F) 04/19/2019 1:00 AM CD T Respiratory Rate 16 04/19/2019 1:00 AM CDT Oxygen Saturation 98% 04/19/2019 1:02 AM CDT Inhaled Oxygen Concentration - - Weight 70.3 kg (155 lb) 04/19/2019 1:00 AM CDT Height - - Body Mass Index - - Plan of Treatment Not on file Care Teams Silver Designer Relationship Specialty Start Date End Date No Ref-Primary, Physician PCP - General 04/19/19
--- OUTSIDE RECORDS SUMMARY | 2024-07-15 10:20 | XMS_ITS | Encounter Summary ---
Author Organization [place] Address [facility] [place] [address] Care Team Providers Care Plant Security Guard Name Role Phone Emmanuel Maravilla MD Primary Care Provid er No Ref-Primary, Physician Primary Care Provider Encounter Details Date Type Department Care Team (Late st Contact Info) Description 12/28/[address] [address] Emmanuel Maravilla MD [address] [place] [id number] ER ENC (Primary Dx) Social History Tobacco Use Types Packs/Day Years Used Date Smoking Tobacco: Never Assessed Sex and Gender Information Value Date Recorded Sex Assigned at Not on file Gender Identity Not on file Sexual Orientation Not on file documented as of this encounter Progress Notes * 12/25/2002 11:59 PM [id number] 00:00 Emergency Department Encounter-NERI PATEL () [Entered: 00:00 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 HISTORY [...] day. Occasional a lcohol. He works for [employer] and lives in [place]. He is single. OBJECTIVE: Temper ature is [...] E M120 NERI DYER MD MT: Document: [id number] [place], [place] Name: TENZIN GARNER EMERGENCY ROOM ENCOUNTER Page 2 of 2 LCN: DAYAMI DSC: 12/28/2002 [place], [place] Name: MR#: : [facility] Date: TENZIN GARNER -43 1975 12/28/2002 Doctor: NERI DYER MD EMERGEN CY ROOM ENCOUNTER Page 1 of 1 Electronically filed by Aden Suazo ([facility]) 01/05/2003 9:44 AM documented in this encounter Plan of Treatment Not on file documented as of this encounter Visit Diagnoses Diagnosis ER ENC- Primary documented in this encounter Care Teams Plant Security Guard Relationship Specialty Start Date End Date Maravilla, Christopher Shaheed, MD [address] [place] [address] PCP - General 12/07/01 04/18/19 No Ref-Primary, Physician PCP - General 04/19/19 documented as of this encounter
--- OUTSIDE RECORDS SUMMARY | 2024-07-15 10:20 | XMS_ITS | Referral Summary ---
Author Organization [place] Address [address] [place] [address]. [place] [address] Care Team Providers Care Vascular Technologist Sonographer Name Role Phone No Ref-Primary, Physician Primary [...] of Treatment Not on file Care Teams Vascular Technologist Sonographer Relationship Specialty Start Date End Date No Ref-Primary, Physician PCP - General 04/19/19
--- OUTSIDE RECORDS SUMMARY | 2024-07-15 10:21 | XMS_ITS | Clinical Summary ---
Author Organization [employer] [facility] Address [place], [place] [address] Care Team Providers Care Clarifier Operator Helper Name Role Phone [facility] Primary Care Provider Unavailabl e Allergies Active Allergy Reactions Criticality Noted Date Comments Acetaminophen Stomach Upset 12/04/2014 Medications Medication Sig Dispensed Refills Start Date End Date Status ranitidine (ZANTAC) 150 mg tabletIndications:Ep igastric pain One pill 1-2 times a day as needed for stomach symptoms. 180 tablet 2 10/23/2016 Active cyclobenzaprine (FLEXERIL) 10 mg tabletIndications:Wo rsening headaches One po q hs 30 tablet 3 04/30/2017 Active omeprazole (PRILOSEC) 20 mg Delayed-Release capsuleIndications:C hronic cough Take 1 capsule by mouth once daily before a meal. 30 capsule 4 04/30/2017 Active albuterol HFA 90 mcg/actuation inhalerIndications:C hronic cough Inhale 2 Puffs by mouth 4 times daily if needed. 1 Inhaler 04/30/2017 Active Active Problems Problem Noted Date Diagnosed Date Presbyopia 06/26/2019 Myopia of both eyes 11/14/2016 Alcohol-induced acute pancreatitis 05/09/2016 Elevated LFTs 03/28/2015 Dyslipidemia 03/28/2015 Tobacco abuse 03/27/2015 Marijuana use 03/27/2015 Mid back pain, chronic 03/27/2015 Alcohol use 03/27/2015 HTN (hypertension) 03/25/2015 Low back pain 11/13/2014 ASTHMA NOS 10/03/1999 Resolved Problems Problem Noted Date Diagnosed Date Resolved Date HTN (hypertension) 03/27/2015 5 Immunizations Name Administration Dates Next Due Td, Preservative Free (age >= 7 Years) 5 Tdap 11/09/2009 Family History Medical History Relation Name Comments Genetic Other FATHER LA[employer]Y E[employer] Relation Name Status Comments Other Social History Tobacco Use Types Packs/Day Years Used Date Smoking Tobacco: Every Day Cigarettes Smokeless Tobacco: Never Tobacco Cessation:Ready to Q uit: No; Counseling Given: Yes Comments:6 cigarettes per day, is working on quitting Alcohol Use Standard Drinks/Week Comments Yes 0 (1 standard drink = 0.6 oz pur e alcohol) 6 beers a night Social Connections Answer Date Recorded Frequency of Communication with Friends and Fami ly Not on file 06/26/2023 Sex and Gender Information Value Date Recorded Sex Assigned at Not on file Gender Identity Not on file Sexual Orientation Not on file Obstetrics History Last Filed Vital Signs Vital Sign Reading Time Taken Comments Blood Pressure 140/82 06/26/2019 5:25 PM CDT Pulse 78 06/26/2019 5:25 PM CDT Temperature 37.1 ??C (98.8 ??F) 04/30/2017 9:38 AM CD T Respiratory Rate 12 11/09/2009 1:23 PM DESIGN STUDIO CONSULTANT Oxygen Saturation 97% 04/30/2017 9:38 AM CDT Inhaled Oxygen Concentration - - Weight 64.4 kg (142 lb) 05/02/2019 11:34 AM CDT Height 181.5 cm (5' 11.46) 04/09/2017 8:38 AM C DT Body Mass Index 19.55 04/09/2017 8:38 AM CDT Plan of Treatment Health Maintenance Due Date Last Done Comments HIV for age 15-65 1990 Hepatitis C screening for age 18-79 1993 Depression screening for age 12+ 12/04/2017 12/04/2016, 11/07/2016, 04/11/2016 BMI (ht and wt on same day) for age 18+ 04/09/2018 04/09/2017, 12/29/2016, 11/07/2016, Additional history exists Colonoscopy through age 75 2020 Lipids for age 45-75 2020 03/25/2015 COVID-19 vaccine series (2023- season) 2024 Influenza for age 9-49 06/22/2024 Tetanus booster 07/23/2025 07/23/2015, 11/09/2009 Tdap Completed 11/09/2009 Pneumococcal series for age 6-64 Aged Out No longer eligible based on patient's age to complete this topic Procedures Procedure Name Priority Date/Time Associated Diagnosis Comments LIPID PANEL W REFLEX MEASURED LDL Routine 03/25/2015 5:10 PM CDT Elevated blood pressure from Last 3 Months or Most Recently Relevant to Health Maintenance Results * (ABNORMAL) LIPID PANEL W REFLEX MEASURED LDL (03/25/2015 5:10 PM CDT) CHOLESTEROL,TOTAL 230(H) 100 - 199 mg/dL 03/26/2015 6:04 PM CDT [facility] TRIGLYCERIDES 205(H) <150 mg/dL 03/26/2015 6:04 PM CDT [facility] HDL CHOLESTEROL 90 >40 mg/dL 5 6:04 PM CDT [facility] NON-HDL CHOLESTEROL 140 <145 mg/dl 03/26/2015 6:04 PM CDT [facility] CHOL/HDL RATIO 2.56 <4.50 03/26/2015 6:04 PM CDT [facility] LDL CHOLESTEROL 99 <=130 mg/dL 03/26/2015 6:04 PM CDT [facility] TRAL LABORATORY PATIENT STATUS FASTING 03/26/2015 6:04 PM CDT [facility] TR[facility] Blood specimen (specimen) BLOOD SPECIMEN / Unknown Venipuncture / Unknown 03/25/2015 5:10 PM CDT 03/25/2015 5:10 PM CDT Kristina Hernandez DO CHEMISTRY [facility] [address] [place] [address], [place] from Last 3 Months or Most Recently Relevant to Health Maintenance Care Teams Clarifier Operator Helper Relationship Specialty Start Date End Date Marbella [facility] PCP - General 04/25/19
[2024-07-15 15:13] LABS: Chlamydia DNA Amplified* NOT DETECTED (No Detected); GC DNA Amplified* NOT DETECTED (No Detected)
== END 2024-07-15 10:10 | disposition home or self-care (01) ==
PROVIDERS: PCP Family Medicine; Visit Provider Family Medicine
DX: I10 Essential (primary) hypertension (principal); Z11.3 Encounter for screening for infections with a predominantly sexual mode of transmission; Z12.5 Encounter for screening for malignant neoplasm of prostate; Z11.59 Encounter for screening for other viral diseases; Z13.220 Encounter for screening for lipoid disorders; Z13.29 Encounter for screening for other suspected endocrine disorder
CPT/HCPCS: 80053; 80061; 82043; 82570; 84443; 86592; 86703; 86803; 87491; 87591; G0103

== ENCOUNTER 2024-07-21 13:33 | Outpatient (CLI) | payer BC, SELFPAY ==
--- OUTSIDE RECORDS SUMMARY | 2024-07-21 13:36 | XMS_ITS | Referral Summary ---
Author Organization [place] Address [address] [place] [address]. [place] [address] Care Team Providers Care Cereal Supervisor Name Role Phone No Ref-Primary, Physician Primary [...] of Treatment Not on file Care Teams Cereal Supervisor Relationship Specialty Start Date End Date No Ref-Primary, Physician PCP - General 04/19/19
--- OUTSIDE RECORDS SUMMARY | 2024-07-21 13:36 | XMS_ITS | Encounter Summary ---
Author Organization [place] Address [facility] [place] [address] Care Team Providers Care Nuclear Medicine Chief Technologist Name Role Phone Emmanuel Maravilla MD Primary Care Provid er No Ref-Primary, Physician Primary Care Provider Encounter Details Date Type Department Care Team (Late st Contact Info) Description 12/28/[address] [address] Emmanuel Maravilla MD [address] [place] [id number] ER ENC (Primary Dx) Social History Tobacco Use Types Packs/Day Years Used Date Smoking Tobacco: Never Assessed Sex and Gender Information Value Date Recorded Sex Assigned at Not on file Gender Identity Not on file Sexual Orientation Not on file documented as of this encounter Progress Notes * 12/25/2002 11:59 PM [id number] 00:00 Emergency Department Encounter-NERI PATEL () [Entered: 00:00 Hay 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 [...] day. Occasional a lcohol. He works for [employer] and lives in [place]. He is single. OBJECTIVE: Temper ature is [...] E M120 NERI DYER MD MT: Document: [id number] [place], [place] Name: TENZIN GARNER EMERGENCY ROOM ENCOUNTER Page 2 of 2 LCN: DAYAMI DSC: 12/28/2002 [place], [place] Name: MR#: : Ad [facility] Date: TENZIN GARNER -43 1975 12/28/2002 Doctor: NERI DYER MD EMERGEN CY ROOM ENCOUNTER Page 1 of 1 Electronically filed by Aden Suazo ([facility]) 01/05/2003 9:44 AM documented in this encounter Plan of Treatment Not on file documented as of this encounter Visit Diagnoses Diagnosis ER ENC- Primary documented in this encounter Care Teams Nuclear Medicine Chief Technologist Relationship Specialty Start Date End Date Maravilla, Christopher Shaheed, MD [address] [place] [address] PCP - General 12/07/01 04/18/19 No Ref-Primary, Physician PCP - General 04/19/19 documented as of this encounter
--- OUTSIDE RECORDS SUMMARY | 2024-07-21 13:36 | XMS_ITS | Clinical Summary ---
Author Organization [employer] [facility] Address [place], [place] [address] Care Team Providers Care Assistant Sales Director Name Role Phone [facility] Primary Care Provider Unavailabl e Allergies Active [...] T Respiratory Rate 12 11/09/2009 1:23 PM PROTOTYPER Oxygen Saturation 97% 04/30/2017 9:38 AM CDT [...] - 199 mg/dL 03/26/2015 6:04 PM CDT [facility] TRIGLYCERIDES 205(H) <150 mg/dL 03/26/2015 6:04 PM CDT [facility] TRAL LAB[facility] HDL CHOLESTEROL 90 >40 mg/dL 5 6:04 PM CDT [facility] NON-HDL CHOLESTEROL 140 <145 mg/dl 03/26/2015 6:04 PM CDT [facility] LAB[facility] CHOL/HDL RATIO 2.56 <4.50 03/26/2015 6:04 PM CDT [facility] TR[facility] LAB[facility] LDL CHOLESTEROL 99 <=130 mg/dL 03/26/2015 6:04 PM CDT [facility] TRAL LABORATORY PATIENT STATUS FASTING 03/26/2015 6:04 PM CDT [facility] TRAL LABORATORY Blood specimen (specimen) BLOOD SPECIMEN / Unknown Venipuncture / Unknown 03/25/2015 5:10 PM CDT 03/25/2015 5:10 PM CDT Kristina Hernandez DO CHEMISTRY [facility] [address] [place] [address], [place] from Last 3 Months or Most Recently Relevant to Health Maintenance Care Teams Assistant Sales Director Relationship Specialty Start Date End Date [facility] PCP - General 04/25/19
--- OUTSIDE RECORDS SUMMARY | 2024-07-21 13:36 | XMS_ITS | Clinical Summary ---
Author Organization [place] Address [address] [place] [address]. [place] [address] Care Team Providers Care Envelope Maker Name Role Phone No Ref-Primary, Physician Primary [...] of Treatment Not on file Care Teams Envelope Maker Relationship Specialty Start Date End Date No Ref-Primary, Physician PCP - General 04/19/19
--- NOTE | 2024-07-21 14:00 | CRLHL7_ITS ---
For Patients: As a result of the Century Cures Act, medical imaging exams and procedure reports are released immediately into your electronic medical record. You may view this report before your referring provider. If you have questions, please contact your health care provider. INDICATION: Elevated LFTs COMPARISON: none TECHNIQUE: Real time beltran scale imaging and color Doppler analysis was performed of the right upper quadrant. FINDINGS: The patient`s liver is of normal size and has diffusely increased echogenicity. The liver measures 13.1 cm. Focal fatty sparing is present adjacent to the gallbladder. There is a normal appearance of the hepatic IVC and proximal abdominal aorta. There is no evidence of ascites. The gallbladder is of normal size and there is no evidence of intraluminal stones or sludge. The gallbladder wall measures 1.6 mm in thickness. The common bile duct is of normal size and measures 3.5 mm in diameter at the level of the ramirez hepatis. The pancreas appears normal. There is no evidence of a stone or hydronephrosis within the right kidney. The right kidney measures 10.7 cm in length. IMPRESSION: Severe diffuse hepatic steatosis. Remainder unremarkable. Dictated by Shaq Anne MD @ 07/22/2024 5:52:53 AM (Electronically Signed)
== END 2024-07-21 13:34 | disposition home or self-care (01) ==
PROVIDERS: PCP Family Medicine; Visit Provider Family Medicine
DX: R79.89 Other specified abnormal findings of blood chemistry (principal); K76.0 Fatty (change of) liver, not elsewhere classified; F10.10 Alcohol abuse, uncomplicated
CPT/HCPCS: 76705

== ENCOUNTER 2024-07-29 07:09 | Outpatient (CLI) | payer BC, SELFPAY ==
--- OUTSIDE RECORDS SUMMARY | 2024-07-29 07:12 | XMS_ITS | Clinical Summary ---
Author Organization [place] Address [address] [place] [address]. [place] [address] Care Team Providers Care Hand Ii Tube Bender Name Role Phone No Ref-Primary, Physician Primary [...] of Treatment Not on file Care Teams Hand Ii Tube Bender Relationship Specialty Start Date End Date No Ref-Primary, Physician PCP - General 04/19/19
--- OUTSIDE RECORDS SUMMARY | 2024-07-29 07:12 | XMS_ITS | Clinical Summary ---
Author Organization [place] [facility] Address [place], [place] [address] Care Team Providers Care Milk Drying Machine Operator Name Role Phone [facility] Primary Care Provider Unavailabl e Allergies Active [...] T Respiratory Rate 12 11/09/2009 1:23 PM CONTINUOUS MINING [employer] MINER Oxygen Saturation 97% 04/30/2017 9:38 AM CDT [...] - 199 mg/dL 03/26/2015 6:04 PM CDT [facility] TRIGLYCERIDES 205(H) <150 mg/dL 03/26/2015 6:04 PM CDT [facility] TR[facility] LAB[facility] HDL CHOLESTEROL 90 >40 mg/dL 5 6:04 PM CDT [facility] NON-HDL CHOLESTEROL 140 <145 mg/dl 03/26/2015 6:04 PM CDT [facility] TR[facility] LAB[facility] CHOL/HDL RATIO 2.56 <4.50 03/26/2015 6:04 PM CDT [facility] TR[facility] LAB[facility] LDL CHOLESTEROL 99 <=130 mg/dL 03/26/2015 6:04 PM CDT [facility] TRAL LABORATORY PATIENT STATUS FASTING 03/26/2015 6:04 PM CDT [facility] TR[facility] LABORATORY Blood specimen (specimen) BLOOD SPECIMEN / Unknown Venipuncture / Unknown 03/25/2015 5:10 PM CDT 03/25/2015 5:10 PM CDT Kristina Hernandez DO CHEMISTRY [facility] [address] [place] [address], [place] from Last 3 Months or Most Recently Relevant to Health Maintenance Care Teams Milk Drying Machine Operator Relationship Specialty Start Date End Date Marbella [facility] PCP - General 04/25/19
--- OUTSIDE RECORDS SUMMARY | 2024-07-29 07:12 | XMS_ITS | Encounter Summary ---
Author Organization [place] Address [facility] [place] [address] Care Team Providers Care Learning Disabled Teacher Name Role Phone Emmanuel Maravilla MD Primary Care Provid er No Ref-Primary, Physician Primary Care Provider Encounter Details Date Type Department Care Team (Late st Contact Info) Description 12/28/[address] [address] Emmanuel Maravilla MD [address] [place] [phone] ER ENC (Primary Dx) Social History Tobacco Use Types Packs/Day Years Used Date Smoking Tobacco: Never Assessed Sex and Gender Information Value Date Recorded Sex Assigned at Not on file Gender Identity Not on file Sexual Orientation Not on file documented as of this encounter Progress Notes * 12/25/2002 11:59 PM [id number] 00:00 Emergency Department Encounter-NERI PATEL () [Entered: 00:00 Plant Operations Coordinator ([facility])] : 1975 CHIEF COMPLAINT: Foot pain. HISTORY [...] day. Occasional a lcohol. He works for [employer] and lives in [place]. He is single. OBJECTIVE: Temper ature is [...] E M120 NERI DYER MD MT: Document: [id number] [place], [place] Name: TENZIN GARNER EMERGENCY ROOM ENCOUNTER Page 2 of 2 LCN: DAYAMI DSC: 12/28/2002 [place], [place] Name: MR#: : Ad [facility] Date: TENZIN GARNER -43 1975 12/28/2002 Doctor: NERI DYER MD EMERGEN CY ROOM ENCOUNTER Page 1 of 1 Electronically filed by Aden Suazo ([facility]) 01/05/2003 9:44 AM documented in this encounter Plan of Treatment Not on file documented as of this encounter Visit Diagnoses Diagnosis ER ENC- Primary documented in this encounter Care Teams Learning Disabled Teacher Relationship Specialty Start Date End Date Maravilla, Christopher Shaheed, MD [address] [place] [address] PCP - General 12/07/01 04/18/19 No Ref-Primary, Physician PCP - General 04/19/19 documented as of this encounter
--- OUTSIDE RECORDS SUMMARY | 2024-07-29 07:12 | XMS_ITS | Referral Summary ---
Author Organization [place] Address [address] [place] [address]. [place] [address] Care Team Providers Care Golf Range Attendant Name Role Phone No Ref-Primary, Physician Primary [...] of Treatment Not on file Care Teams Golf Range Attendant Relationship Specialty Start Date End Date No Ref-Primary, Physician PCP - General 04/19/19
--- NOTE | 2024-07-29 09:18 | W.ANESCHARGE ---
Anesthesia Charges Start Date/Time Anesthesia Start Date: 07/29/24 Anesthesia Start Time: 08:25 Stop Date/Time Anesthesia Stop Date: 07/29/24 Anesthesia Stop Time: 09:25
--- NOTE | 2024-07-29 09:30 | W.ANESCHARGE ---
Anesthesia Charges Start Date/Time Anesthesia Start Date: 07/29/24 Anesthesia Start Time: 08:25 Stop Date/Time Anesthesia Stop Date: 07/29/24 Anesthesia Stop Time: 09:25
== END 2024-07-29 07:10 | disposition home or self-care (01) ==
LOC: OP CLINIC 07:09
PROVIDERS: PCP Family Medicine; Visit Provider Surgery
DX: Z12.11 Encounter for screening for malignant neoplasm of colon (principal); D12.2 Benign neoplasm of ascending colon; D12.3 Benign neoplasm of transverse colon; D12.5 Benign neoplasm of sigmoid colon; D12.8 Benign neoplasm of rectum; K64.4 Residual hemorrhoidal skin tags; Z80.0 Family history of malignant neoplasm of digestive organs
CPT/HCPCS: 00811; 45381; 45385; 88305; J2704

== ENCOUNTER 2025-01-02 13:56 | Outpatient (CLI) | payer BC, SELFPAY | END 2025-01-02 13:57 | disposition home or self-care (01) | LOC: FRMREF 13:57 | PROVIDERS: PCP Family Medicine; Visit Provider Family Medicine | DX: R79.89 Other specified abnormal findings of blood chemistry (principal); F10.10 Alcohol abuse, uncomplicated; K76.0 Fatty (change of) liver, not elsewhere classified | CPT/HCPCS: 80053 ==

== ENCOUNTER 2025-01-23 12:36 | Outpatient (CLI) | payer BC, SELFPAY | END 2025-01-23 12:37 | disposition home or self-care (01) | LOC: FRMREF 12:38 | PROVIDERS: PCP Family Medicine; Visit Provider Family Medicine | DX: L51.9 Erythema multiforme, unspecified (principal) | CPT/HCPCS: 86618 ==